=== PATIENT | male | born 1980 | race Caucasian/White ===

== ENCOUNTER 2017-01-01 10:08 | Emergency (ER) | payer OTHER ==
[~2017-01-01] VITALS: Ht 175.3 cm; Wt 118.8 kg
--- NOTE | ~2017-01-01 | CR63 ---
[facility] A Service of [facility] & [facility] RADIOLOGY TEXT RESULTS PATIENT: ADE BELTRAN LOCATION: SED : 76 UNIT #: [id number] AGE: [address]: Inna Ballard MD SEX: M ORDER DR: [id number] [id number] E MR#: [id number] Acc #: [id number] NAME: ADE BELTRAN : 1980 SEX: M STUDY DATE/TIME: 01/01/2017 10:54 UNIT: SED ROOM: STUDY DESCRIPTION: CR Chest 2 View Attending Physician: Inna Ballard M.D. Ordering Physician: Inna Ballard M.D. Primary Care Physician: Primary Care Physician No MEDICAL IMAGING REPORT This report is preliminary unless electronic signature is present. EXAM Chest PA and lateral 01/01/2017 HISTORY Shortness of breath and wheezing for 1 month, asthma with no improvement in asthma symptoms with inhaler. Cough for 1 month. FINDINGS The heart is normal in size. There is peribronchial cuffing suggesting reactive airway disease. No airspace consolidation is seen. There are no pleural effusions. IMPRESSION Peribronchial cuffing characteristic of reactive airway disease. Dictated by... Miguel Olivares M.D. THIS IS AN ELECTRONICALLY VERIFIED REPORT Miguel Olivares M.D. at 01/02/2017 7:32 AM GWENDOLYN/lilli TD: 01/01/2017 14:12 JOB #: [id number] MEDICAL IMAGING REPORT Page 1 of 1
[2017-01-01] MEDS ORDERED: ALBUTEROL2.5 MG/3 M (10:13)
[2017-01-01] MEDS ORDERED: ALBUTEROL17 GM (10:13)
== END 2017-01-01 12:50 | disposition home or self-care (01) ==
LOC: SED 10:08
DX: J45.901 Unspecified asthma with (acute) exacerbation (principal); E11.9 Type 2 diabetes mellitus without complications; J45.909 Unspecified asthma, uncomplicated; Z88.1 Allergy status to other antibiotic agents; Z91.013 Allergy to seafood
CPT/HCPCS: 71020; 94640; 99285